=== PATIENT | female | born 1970 | race Caucasian/White ===

== ENCOUNTER 2020-06-15 15:58 | Outpatient (CLI) | payer OTHER, SELFPAY ==
--- NOTE | 2020-06-15 | ECG_ITS ---
Measurements Intervals [place] Rate: 61 P: 69 [place]: 161 QRS: 15 QRSD: 80 T: 33 QT: 422 QTc: 427 Interpretive Statements SINUS RHYTHM LOW QRS VOLTAGE IN PRECORDIAL LEADS BASELINE ARTIFACT- AVR, AVL, AVF BORDERLINE ECG Electronically Signed On 06-15-2020 16:34:22 CDT by Gilson Duran D.O.
== END 2020-06-15 15:59 | disposition home or self-care (01) ==
LOC: ANHCARD 16:01
PROVIDERS: Visit Provider Obstetrics & Gynecology
DX: R07.9 Chest pain, unspecified (principal); R94.31 Abnormal electrocardiogram [ECG] [EKG]
CPT/HCPCS: 93005

== ENCOUNTER 2023-07-27 14:35 | Outpatient (CLI) | payer OTHER, SELFPAY ==
--- NOTE | 2023-07-27 | ECG_ITS ---
Measurements Intervals [place] Rate: 61 P: 65 [place]: 166 QRS: 12 QRSD: 83 T: 31 QT: 406 QTc: 412 Interpretive Statements SINUS RHYTHM LOW QRS VOLTAGE IN PRECORDIAL LEADS BORDERLINE ECG COMPARED TO ECG 06/15/2020 16:19:50 NO SIGNIFICANT CHANGES Electronically Signed On 07-27-2023 15:16:09 CONTACT [employer] HELPER by Gilson Duran D.O.
== END 2023-07-27 14:36 | disposition home or self-care (01) ==
LOC: ANHCARD 14:47
PROVIDERS: Visit Provider Podiatrist Foot & Ankle Surgery
DX: Z01.810 Encounter for preprocedural cardiovascular examination (principal)
CPT/HCPCS: 93005